=== PATIENT | male | born 1970 | race Caucasian/White ===

== ENCOUNTER 2017-10-19 10:54 | Emergency (ER) | payer MEDICAID, OTHER ==
[2017-10-19 11:10] VITALS: RESP 18; O2SAT 97
--- NOTE | 2017-10-19 11:44 | C.PDOC ---
History Of Present Illness Patient is a 47 year old male with PMHx gastritis who presents with complaint of knee pain for past 2 years. Patient states he has tried to see orthopedics but no one takes his insurance. Patient states he saw his PMD recently who did not suggest further work up for the knee pain. Patient does not recall any particular injury that triggered the pain. Patient states pain worsened in the past week which is why he came to ED today. Patient states he takes advil and tylenol infrequently for pain. He states he mostly uses topical pain relief cream. (Lorelei RASMUSSEN,Glenny Angel) History Per: Patient Onset/Duration Of Symptoms: Other (2 years of left knee pain) Current Symptoms Are (Timing): Still Present Severity: Moderate Time Seen by Provider: 10/19/17 11:31 Chief Complaint (Nursing): Lower Extremity Problem/Injury Past Medical History - Medical History PMH: Gastritis Surgical History: Appendectomy Family History: States: No Known Family Hx - Social History Hx Tobacco Use: No Hx Alcohol Use: No Hx Substance Use: No - Immunization History Hx Tetanus Toxoid Vaccination: No Hx Influenza Vaccination: No Hx Pneumococcal Vaccination: No Vital Signs: Last Vital Signs Temp 97.8 F 10/19/17 13:41 Pulse 69 10/19/17 13:41 Resp 18 10/19/17 13:41 BP 108/80 10/19/17 13:41 Pulse Ox 97 10/20/17 09:44 Review Of Systems Constitutional: Negative for: Fever, Chills Eyes: Negative for: Vision Change ENT: Negative for: Nose Congestion Cardiovascular: Negative for: Chest Pain, Palpitations Respiratory: Negative for: Cough, Shortness of Breath Gastrointestinal: Negative for: Nausea, Vomiting, Abdominal Pain Genitourinary: Negative for: Dysuria, Frequency Musculoskeletal: Positive for: Leg Pain (left knee) Neurological: Negative for: Weakness, Numbness Physical Exam - Physical Exam Appears: Well, Non-toxic, No Acute Distress Skin: Warm, Dry Head: Atraumatic, Normacephalic Eye(s): bilateral: EOMI Nose: Normal Oral Mucosa: Moist Tongue: Normal Appearing Lips: Normal Appearing Teeth: Normal Dentition Neck: Normal, Normal ROM Chest: Symmetrical Cardiovascular: Rhythm Regular Respiratory: Normal Breath Sounds Gastrointestinal/Abdominal: Normal Exam, Bowel Sounds, Soft Extremity: Tenderness (medial aspect left knee joint line tenderness), Other ( no left knee effusion, no swelling in popliteal fossa, no crepitus) Neurological/Psych: Oriented x3 ED Course And Treatment O2 Sat by Pulse Oximetry: 97 - Other Rad Left Knee X-Ray: Viewed By Me, Read By Radiologist Interpretation: PROCEDURE: Left Knee Radiographs. HISTORY: Pain. COMPARISON : 04/05/2013. FINDINGS: BONES: Bone alignment and mineralization are normal. No acute fracture. JOINTS: Mild degenerative osteoarthrosis in the medial compartment with reduced joint space and marginal spurring. JOINT EFFUSION: There is a small suprapatellar joint effusion. OTHER FINDINGS: None. IMPRESSION: No acute fracture or dislocation. Mild degenerative osteoarthrosis in the medial compartment and small suprapatellar joint effusion. Medical Decision Making Medical Decision Making: Examined the patient who is currently c/o let knee pain mostly on the medial aspect, patient states he feel something is stuck in his knee when he moves it. Patient rates his pain as 8/10 non radiating. Patient refused pain medication at this time and will have an X-Ray done. (Maura Ritchie) Patient refused Advil and Tylenol. (Lorelei RASMUSSEN,Glenny Angel) Disposition Counseled Patient/Family Regarding: Studies Performed, Diagnosis, Need For Followup - Disposition Disposition Time: 13:52 - Disposition Referrals: [facility] [Outside] Disposition: HOME/ ROUTINE Condition: GOOD Additional Instructions: Please follow up with the medical clinic. You can take ibuprofen or tylenol as needed for pain. 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 CELINE has examined the patient and agrees with the treatment plan.
--- NOTE | 2017-10-19 13:19 | RAD ---
PROCEDURE: Left Knee Radiographs. HISTORY: Pain. COMPARISON: 04/05/2013. FINDINGS: BONES: Bone alignment and mineralization are normal. No acute fracture. JOINTS: Mild degenerative osteoarthrosis in the medial compartment with reduced joint space and marginal spurring. JOINT EFFUSION: There is a small suprapatellar joint effusion. OTHER FINDINGS: None. IMPRESSION: No acute fracture or dislocation. Mild degenerative osteoarthrosis in the medial compartment and small suprapatellar joint effusion.
[2017-10-19 13:42] VITALS: BP 108/80; PULSE 69; TEMP 97.8
== END 2017-10-19 14:03 | disposition home or self-care (01) ==
LOC: C.ER 10:54
DX: M13.862 Other specified arthritis, left knee (principal)

== ENCOUNTER 2018-01-15 20:20 | Emergency (ER) | payer OTHER ==
[2018-01-15 20:44] VITALS: RESP 16
--- NOTE | 2018-01-15 21:20 | C.PDOC ---
Time Seen by Provider: 01/15/18 20:32 Chief Complaint (Nursing): Abnormal Skin Integrity Past Medical History Vital Signs: Last Vital Signs Temp 98 F 01/15/18 20:43 Pulse 58 L 01/15/18 20:43 Resp 16 01/15/18 20:43 BP 129/88 01/15/18 20:43 Pulse Ox 100 01/15/18 20:43 - Medical History PMH: Gastritis Surgical History: Appendectomy - Social History Hx Tobacco Use: No Hx Alcohol Use: No Hx Substance Use: No - Immunization History Hx Tetanus Toxoid Vaccination: No Hx Influenza Vaccination: No Hx Pneumococcal Vaccination: No ED Course And Treatment O2 Sat by Pulse Oximetry: 100 Disposition - Disposition Referrals: [facility] [Outside] Disposition: HOME/ ROUTINE Disposition Time: 21:18 Condition: GOOD Additional Instructions: Follow up with the medical doctor within 1-2 days. Return if worsened, Prescriptions: DiphenhydrAMINE [Benadryl] 25 mg PO QID #28 cap predniSONE [Prednisone] 10 mg PO BID #10 tab Instructions: Insect Bites and Stings (DC) Forms: [facility] (Eritrean) - POA Present On Arrival: None - Clinical Impression Clinical Impression: Insect bite
--- NOTE | 2018-01-15 21:20 | C.PDOC ---
History Of Present Illness 47yo male, comes to ER for evaluation of itchy bug bites to his arms and legs. The patient reports he spent the day before [place] in the park. He denies any exposure to new foods, linens, lotions. He denies any difficulty breathing, throat swelling, and offers no other complaints. Time Seen by Provider: 01/15/18 20:32 Chief Complaint (Nursing): Abnormal Skin Integrity History Per: Patient History/Exam Limitations: no limitations Onset/Duration Of Symptoms: Persistent Current Symptoms Are (Timing): Still Present Quality Of Symptoms: Itching Past Medical History Reviewed: Historical Data, Nursing Documentation, Vital Signs Vital Signs: Last Vital Signs Temp 98.0 F 01/15/18 21:22 Pulse 66 01/15/18 21:22 Resp 16 01/15/18 21:22 BP 117/81 01/15/18 21:22 Pulse Ox 100 01/15/18 21:30 - Medical History PMH: No Chronic Diseases, Gastritis Surgical History: Appendectomy Family History: States: No Known Family Hx - Social History Hx Tobacco Use: No Hx Alcohol Use: No Hx Substance Use: No - Immunization History Hx Tetanus Toxoid Vaccination: No Hx Influenza Vaccination: No Hx Pneumococcal Vaccination: No Review Of Systems Constitutional: Negative for: Fever, Chills ENT: Negative for: Ear Pain Cardiovascular: Negative for: Chest Pain Respiratory: Negative for: Cough, Shortness of Breath Skin: Positive for: Other (bug bites) Physical Exam - Physical Exam Appears: Non-toxic, No Acute Distress Skin: Warm, Dry, Other (circular nodular insect bites with no tenderness and no surrounding erythema noted to bilateral arms and legs. no signs of infection. ) Head: Atraumatic, Normacephalic Eye(s): bilateral: Normal Inspection, PERRL, EOMI Oral Mucosa: Moist Neck: Normal ROM, Supple Cardiovascular: Rhythm Regular, No Friction Rub, No Murmur Respiratory: Normal Breath Sounds, No Accessory Muscle Use Extremity: Normal ROM, No Tenderness Neurological/Psych: Oriented x3, Normal Speech, Normal Motor Gait: Steady ED Course And Treatment O2 Sat by Pulse Oximetry: 100 (RA) Pulse Ox Interpretation: Normal Progress Note: Patient given prescription for anti-inflammatories and instructed to follow up with PMD in 2-3 days. Medical Decision Making Medical Decision Making: There is no evidence of infection and the bites are consistent with mosquito bites. Disposition - Disposition Referrals: [facility] [Outside] Disposition: HOME/ ROUTINE Disposition Time: 21:18 Condition: GOOD Additional Instructions: Follow up with the medical doctor within 1-2 days. 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 - Scribe Statement The provider has reviewed the documentation as recorded by the Saskia Avery Provider Attestation: All medical record entries made by the Saskia were at my direction and personally dictated by me. I have reviewed the chart and agree that the record accurately reflects my personal performance of the history, physical exam, medical decision making, and the department course for this patient. I have also personally directed, reviewed, and agree with the discharge instructions and disposition.
[2018-01-15 21:23] VITALS: BP 117/81; PULSE 66; TEMP 98
[2018-01-15 21:24] VITALS: O2SAT 100
== END 2018-01-15 21:27 | disposition home or self-care (01) ==
LOC: C.ER 20:20
DX: S40.862A Insect bite (nonvenomous) of left upper arm, initial encounter (principal); S40.861A Insect bite (nonvenomous) of right upper arm, initial encounter; S80.862A Insect bite (nonvenomous), left lower leg, initial encounter; S80.861A Insect bite (nonvenomous), right lower leg, initial encounter; W57.XXXA Bitten or stung by nonvenomous insect and other nonvenomous arthropods, initial encounter